=== PATIENT | female | born 1985 | race Caucasian/White ===

== ENCOUNTER → 2020-01-30 14:54 | Outpatient (BNVA) | payer OTHER, SELFPAY | PROVIDERS: Visit Provider Obstetrics & Gynecology | DX: Z97.5 Presence of (intrauterine) contraceptive device (principal); Z32.00 Encounter for pregnancy test, result unknown | CPT/HCPCS: 81025 ==

== ENCOUNTER → 2020-02-17 09:18 | Outpatient (BNVA) | payer OTHER, SELFPAY | PROVIDERS: Visit Provider Obstetrics & Gynecology | DX: N90.4 Leukoplakia of vulva (principal) | CPT/HCPCS: 88305 ==

== ENCOUNTER → 2020-02-24 12:42 | Outpatient (BNVA) | payer OTHER, SELFPAY | PROVIDERS: Visit Provider Obstetrics & Gynecology | DX: Z11.59 Encounter for screening for other viral diseases (principal); D07.1 Carcinoma in situ of vulva | CPT/HCPCS: 87635 ==

== ENCOUNTER 2020-02-26 08:34 | Day surgery (SDC) | payer OTHER, SELFPAY ==
[2020-02-25 12:50] VITALS: BMI 21.7
--- NOTE | 2020-02-25 13:21 | ANES.PREANE2 ---
Pre-Anesthetic Assessment Pre-Anesthetic Assessment: Height/Weight: Height 1.68 m Weight 61.235 kg Preop Diagnosis: Vulvar intraepithelial neoplasia 3 Proposed Procedure: Operation Date: 02/26/20 10:00 Proposed Procedures p Vulvar excisional biopsy 24750 D07.1(Not Applicable) - Tremaine Albrecht MD Familial anesthetic complications: None Social: Social History: Tobacco and No alcohol Exam: Pre-Anes Outpt Exam: alert, oriented x 3, clear to auscultation bilaterally and regular rate & rhythm Airway: Cervical ROM: WNL MP: 1 Dentition: Full Anesthetic Plan: ASA status: 1 Anesthesia: MAC Risk of > 500 ml blood loss (7ml/kg in children): No PFSH Anesthesia PFSH: Medical History (Updated 02/24/20 @ 11:29 by Tremaine Albrecht MD) Vulvar intraepithelial neoplasia (BIRD) grade 3 Family History Father Cancer Bone cancer Grandmother Diabetes Maternal grandmother Other Hyperlipidemia Denies family history of CAD (coronary artery disease) Clotting disorder Dementia Psychiatric illness Chronic kidney disease (CKD) Suicide Anesthesia complication Bleeding disorder Family history of premature coronary artery disease Lung disease Hypertension Stroke Social History Smoking and tobacco status: current every day smoker cigarettes Packs smoked per day: 0.5 Alcohol intake: never Other details last substance use: Denies drug use Female Reproductive History: Date of last menstrual period: 01/27/20 Data Anesthesia Cardiac Studies: No Data to Display
[2020-02-25 13:25] LABS: OR HCG Qualitative Urine Negative (Negative)
[2020-02-25 13:36] LABS: Add Urine Microscopic? NO
[2020-02-25 13:41] LABS: Basophils % 0.4 %; Eosinophils # 0.1 10^3/uL (0.0-0.8); Eosinophils % 1.2 %; Hematocrit 37.9 % (37.0-47.0); Hemoglobin 11.8 g/dL (11.5-15.3); Lymphocytes % 37.2 %; Mean Corpuscular HGB Conc 31.1 g/dL (30.0-36.0); Mean Corpuscular Hemoglobin 26.2 pg (28.0-34.0); Mean Corpuscular Volume 84.2 fL (81-99); Mean Platelet Volume 10.5 fL (7.4-10.4); Monocytes # 0.7 10^3/uL (0.2-0.9); Monocytes % 8.4 %; Neutrophils # 4.26 10^3/uL (1.8-7.7); Neutrophils % 52.6 %; Nucleated Red Blood Cells % 0 %; Platelet Count 280 10^3/cmm (130-400); Red Cell Distribution Width 14.9 % (12.1-15.1); White Blood Count 8.1 10^3/uL (4.0-10.0)
[2020-02-25 14:07] LABS: Bilirubin Urine Neg (Negative); Blood Urine Neg (Negative); Glucose Urine UA Norm (Normal); Ketones Urine Negative (Negative); Leukocyte Esterase Urine Negative (Negative); Nitrate Urine Negative (Negative); Protein Urine Neg (Negative); Urine Appearance Clear (CLEAR); Urine Color Straw (Yellow); Urobilinogen Urine Norm (Negative); pH Urine 5 (5-7)
[2020-02-25 14:09] LABS: Blood Urea Nitrogen 10 mg/dL (6-20); Carbon Dioxide 23 mmol/L (22-29); Chloride 103 mmol/L (98-107); Glomerular Filtration Rate 81.6 mL/min (90-130); Glucose 94 mg/dL (65-115); Osmolality Calculated 283 mOsm/kg (285-295); Sodium 137 mmol/L (136-145)
[2020-02-26] MEDS: sodium chloride 0.9% 500 ML IV (09:15)
[2020-02-26] MEDS: scopolamine 1.5 Patch 1 PATCH TRANSDERMA (09:17)
[2020-02-26 09:22] VITALS: BP 132/76; PULSE 81; RESP 18; TEMP 36.5; O2SAT 100
[2020-02-26] MEDS: sodium chloride 0.9% 1,000 ML 30 ML IV (09:41)
--- NOTE | 2020-02-26 10:58 | W.PM.OPSUD ---
Surgery/Procedure H&P Update DATE OF PROCEDURE: February 26, 2020 DATE H&P PERFORMED: 02/24/20 H&P UPDATE INFORMATION: I have reviewed H&P completed within last 30 days, I have examined patient prior to procedure and No changes to prior documentation PREOP DIAGNOSIS: Vulvar intraepithelial neoplasia 3 PLANNED PROCEDURE: Operation Date: 02/26/20 10:00 Proposed Procedures p Vulvar excisional biopsy 01720 D07.1(Not Applicable) - Tremaine Albrecht MD
--- NOTE | 2020-02-26 13:24 | P.OP_ITS ---
Operative Report Date of procedure: February 26, 2020 Pre-op Diagnosis: Vulvar intraepithelial neoplasia 3 Post-op diagnosis: same Post-op Findings: perineal leukoplakia lesion Procedure Done: vulvar perineal wide local excision Specimens removed/disposition: perineal excision biopsy manuel with suture at the perirectal aend Surgeon: Tremaine Albrecht M.D. 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 Initial biopsy diagnosed with vulvar intraepithelial neoplasia 3. Procedure: After informed consent, the risks and benefits of the procedure were explained to the patient. The patient was brought into the operating room. After anesthesia was given, the patient was prepped and draped in normal sterile fashion. A timeout procedure was carried out. A radial incision was made in the perineum with a #10 blade scalpel with 1 cm margin pass the perineal lesion. An Allis was used to grasp the tissue while using the #10 scalpel. The lesion was completely excised and sent out for specimen to pathology. Hemostasis was then obtained with electrobovie cautery. The defect was closed in layers fashion and skin was then closed with #3-0 Vicryl subcuticular fashion. The patient tolerated the procedure well and was transferred to Recovery in stable condition . The patient was instructed to avoid heavy lifting, tampons, douching, and sexual intercourse for 2 weeks after the procedure.
[2020-02-26 13:40] VITALS: BP 107/61; PULSE 68; RESP 18; TEMP 36.3; O2SAT 100
[2020-02-26 14:07] VITALS: BP 105/71; PULSE 94; RESP 18; O2SAT 98
== END 2020-02-26 14:50 | disposition home or self-care (01) ==
PROVIDERS: Visit Provider Obstetrics & Gynecology
PROC: (CPT 56605; principal; 2020-02-26 09:50)
DX: D07.1 Carcinoma in situ of vulva (principal); F17.210 Nicotine dependence, cigarettes, uncomplicated
CPT/HCPCS: 56605; 12345; 36415; 80048; 81003; 81025; 84703; 85025; 86850; 86900; 88305; 96365; J0690; J1885; J2250; J2405; J2704; J3010; J7030; J7040

== ENCOUNTER → 2021-04-12 10:00 | Outpatient (BNVA) | payer OTHER, SELFPAY | PROVIDERS: Visit Provider Obstetrics & Gynecology | DX: Z12.4 Encounter for screening for malignant neoplasm of cervix (principal) | CPT/HCPCS: 87624 ==

== ENCOUNTER → 2022-06-28 14:20 | Outpatient (BNVA) | payer SELFPAY | PROVIDERS: Visit Provider Obstetrics & Gynecology | DX: Z12.4 Encounter for screening for malignant neoplasm of cervix (principal) | CPT/HCPCS: 87624 ==

== ENCOUNTER → 2023-02-02 13:26 | Outpatient (BNVA) | payer OTHER, SELFPAY | PROVIDERS: Visit Provider Obstetrics & Gynecology | DX: Z30.431 Encounter for routine checking of intrauterine contraceptive device (principal); Z30.9 Encounter for contraceptive management, unspecified; Z30.46 Encounter for surveillance of implantable subdermal contraceptive | CPT/HCPCS: 81025 ==

== ENCOUNTER 2023-11-28 08:18 | Day surgery (SDC) | payer OTHER, SELFPAY ==
--- NOTE | 2023-11-23 11:21 | ANES.PREANE2 ---
Pre-Anesthetic Assessment Height/Weight: Height 1.68 m Preop Diagnosis: desire permanent sterilization Operation Date: 11/28/23 10:00 Proposed Procedures p Laparoscopic Salpingectomy 03929, Z30.2(Bilateral) - Tremaine Albrecht MD Familial anesthetic complications: None Was Beta Kirk taken within 24 hours: N/A Was Clonidine taken within 24 hours: N/A Social Tobacco and No alcohol Exam alert, oriented x 3, clear to auscultation bilaterally and regular rate & rhythm Airway Mallampati: Class I Dentition: full Anesthetic Plan ASA status: 1 Anesthesia: General Risk of > 500 ml blood loss (7ml/kg in children): No Medications/Allergies Home Medications Medication Instructions Recorded Confirmed Last Taken Type ibuprofen 800 mg tablet 800 mg PO TID AUB #60 tabs 08/14/23 11/23/23 Unknown Rx estradiol 0.5 mg tablet 0.5 mg PO DIRECTED 11/23/23 11/23/23 11/23/23 History Allergies Allergy/AdvReac Type Severity Reaction Status Date / Time No Known Allergies Allergy Verified 11/23/23 09:49 [facility] Anesthesia Medical History Aftercare following surgery of the genitourinary system Vulvar intraepithelial neoplasia (BIRD) grade 3 Family History Father Cancer Bone cancer Grandmother Diabetes Maternal grandmother Other Hyperlipidemia Denies family history of CAD (coronary artery disease) Clotting disorder Dementia Psychiatric illness Chronic kidney disease (CKD) Suicide Anesthesia complication Bleeding disorder Family history of premature coronary artery disease Lung disease Hypertension Stroke Social History Smoking and tobacco/nicotine status: never used tobacco/nicotine Alcohol intake: current Alcohol intake frequency: holidays/special occasions only Alcohol type: beer Substance/Drug Use: never Female Reproductive History Date of last menstrual period: 11/08/23 Data Anesthesia Cardiac Studies: No Data to Display
[2023-11-23 11:22] LABS: Charge for UA Resulting for Rev
[2023-11-23 11:27] LABS: Basophils % 0.4 %; Eosinophils # 0.1 10^3/uL (0.0-0.8); Eosinophils % 1.1 %; Hematocrit 42.7 % (36-47); Lymphocytes # 2.3 10^3/uL (0.8-4.8); Mean Corpuscular HGB Conc 32.6 g/dL (30-55); Mean Corpuscular Hemoglobin 29.8 pg (27-33); Mean Corpuscular Volume 91.6 fl (85-98); Mean Platelet Volume 10.1 fL (7.4-10.4); Monocytes # 0.6 10^3/uL (0.2-0.9); Monocytes % 8.5 %; Neutrophils # 4.27 10^3/uL (1.8-7.7); Neutrophils % 58.7 %; Nucleated Red Blood Cells % 0 %; Platelet Count 250 10^3/cmm (157-399); Red Blood Count 4.66 10^6/uL (3.85-5.65); Red Cell Distribution Width 12.9 % (12.1-15.1); White Blood Count 7.28 10^3/uL (3.29-11.43)
[2023-11-23 11:28] LABS: Bilirubin Urine Negative (Negative); Blood Urine 3+ (Negative); Glucose Urine UA Negative (Normal); Ketones Urine Negative (Negative); Leukocyte Esterase Urine Negative (Negative); Nitrate Urine Negative (Negative); Protein Urine Negative (Negative); Specific Gravity, Urine 1.005 (1.005-1.030); Urine Appearance Clear (CLEAR); Urine Color Yellow (Yellow)
[2023-11-23 11:31] LABS: Bacteria Urine None Seen /hpf; RBC Urine 51-100 /hpf (0-2); Squamous Epithelial Cell Urine 0-5 /hpf (0-5); WBC Urine 0-5 /hpf (0-5)
[2023-11-23 11:34] LABS: Add Urine Culture? Yes
[2023-11-23 11:52] LABS: Alanine Aminotransferase 11 U/L (0-33); Albumin Level 4.4 g/dL (3.5-5.2); Alkaline Phosphatase 48 U/L (35-105); Anion Gap 15.9 (5-19); Aspartate Amino Transferase 16 U/L (0-32); Blood Urea Nitrogen 9 mg/dL (6-20); Calcium 8.7 mg/dL (8.5-10.5); Carbon Dioxide 22 mmol/L (22-29); Chloride 107 mmol/L (98-107); Globulin 2.3 g/dL (1.3-4.6); Glomerular Filtration Rate 79.9 mL/min (90-130); Glucose 86 mg/dL (65-115); Osmolality Calculated 288 mOsm/kg (285-295); Potassium 4.9 mmol/L (3.5-5.1); Sodium 140 mmol/L (136-145); Total Bilirubin 0.3 mg/dL (0.15-1.2); Total Protein 6.7 g/dL (6.6-8.7)
[2023-11-28] VITALS (9 sets, daily range): BP systolic 114–132; BP diastolic 70–83; PULSE 69–87; RESP 13–28; TEMP 36.1–36.3; O2SAT 94–100; BMI 20.2
[2023-11-28 08:39] LABS: OR HCG Qualitative Urine Negative (Negative)
[2023-11-28] MEDS: scopolamine 1.5 Patch 1 PATCH TRANSDERMA (09:04)
[2023-11-28] MEDS: sodium chloride 0.9% 1,000 ML 30 ML IV (09:04)
[2023-11-28] MEDS: sodium chloride 0.9% 500 ML IV (09:04)
[2023-11-28] MEDS: ceFAZolin 2,000 mg SDV 2000 MG IVP (09:18)
--- NOTE | 2023-11-28 09:36 | P.ANESUD_ITS ---
Pre-Anesthetic Update Pre-Anesthetic Assessment: Date of Surgery/Procedure: 11/28/23 Preop Claudia gnosis: desire permanent sterilization Proposed Procedure: Operation Date: 11/28/23 10:00 Proposed Procedures p Laparoscopic Salpingectomy 59390, Z30.2(Bilateral) - Tremaine Albrecht MD Any changes to Pre-Anesthetic Assessment?: No Last Intake: Intake Last Liquid Date 11/27/23 Last Liquid Time 23:00 Last Solid Date 11/27/23 Last Solid Time 23:00 Vitals: Temperature 97.1 F L 11/28/23 08:42 Temperature Source Temporal Artery S can 11/28/23 08:42 Pulse Rate 70 11/28/23 08:42 Pulse Rhythm Regular 11/28/23 08:43 Pulse Strength 3+ Normal 11/28/23 08:43 Respiratory Rate 17 11/28/23 08:42 Blood Pressure 127/80 11/28/23 08:42 Blood Pressure Ivory n 95 11/28/23 08:42 Pulse Oximetry 100 11/28/23 08:42 Oxygen Delivery Me thod Room Air 11/28/23 08:43 Exam: Pre-Anes Outpt Exam: alert, oriented x 3, clear to auscultation bilaterally and regular rate & rhythm Cardiac Studies: No Data to Display
--- NOTE | 2023-11-28 10:20 | W.PM.OPSUD ---
Surgery/Procedure H&P Update DATE OF PROCEDURE: November 28, 2023 DATE H&P PERFORMED: 11/23/23 H&P UPDATE INFORMATION: I have reviewed H&P completed within last 30 days, I have examined patient prior to procedure and No changes to prior documentation PREOP DIAGNOSIS: desire permanent sterilization PLANNED PROCEDURE: Operation Date: 11/28/23 10:00 Proposed Procedures p Laparoscopic Salpingectomy 46077, Z30.2(Bilateral) - Tremaine Albrecht MD
[2023-11-28] MEDS: BUPivacaine 0.5% INJ 10 mL INJECTION (11:30)
--- NOTE | 2023-11-28 11:46 | PM.OP ---
Operative Report Date of procedure: November 28, 2023 Pre-op diagnosis: Desire permanent sterilization Post-op diagnosis: same Procedure done: Laparoscopic bilateral salpingectomy Lysis of adhesion Specimens removed/disposition: Left and right fallopian tubes Surgeon: Tremaine Albrecht MD Estimated blood loss (mL): 5 IV fluids (mL): 1,800 Urine output (mL): 150 Complications: None Findings: Normal size uterus, ovaries and fallopian tube Adhesions to the right lower abdominal wall Procedure: After informed consent, the patient was taken to the operating room where general anesthesia was administered. She was placed in the dorsal lithotomy position and prepped and draped in sterile fashion. Pre-Procedure Time-Out verifying the correct patient identity, correct procedure verified with consent, correct site and side, correct patient position, availability of correct implants and any special equipment or requirements was performed and acknowledge by the OR team. The patient was examined under anesthesia and found to have a normal uterus with normal adnexa. A weighted speculum was placed in the vagina, and the anterior lip of cervix was grasped with the single toothed tenaculum. A uterine manipulator was advanced into the endocervical canal and uterus. The tenaculum was removed after uterine manipulator was secured. The speculum was removed from the vagina. An intraumbilical incision was made with a scalpel. While tenting up on the abdomen, a Verres needle was admitted into the intra-abdominal cavity. A saline drop test was performed and noted to be within normal limits. Pneumoperitoneum was attained with 4 liters of carbon dioxide. The Verres needle was removed. A 5 mm Opitc view trocar and sleeve were admitted into the abdomen and laparoscopic confirmation of location was achieved. A second incision was made 3 cm above the symphysis pubis, and a 5 mm trocar sleeves were admitted into the abdomen under direct laparoscopic visualization without complication. A survey revealed normal abdominal anatomy with the exception of string adhesion to the right lower anterior abdominal wall. A 5 mm blunt probe was advanced through the second trocar sleeve, and light manipulation of ovaries and uterus to assess the posterior aspects was performed. The pelvic survey shows normal uterus, left and right adnexa. The left ovary was noted normal.. The adhesion to the right lower anterior abdominal wall was fulgurated and transected with good hemostasis with the Ligasure. The patient was placed into Trendelenburg position. The fallopian tubes were inspected bilaterally and the fimbriated ends of the fallopian tubes were visualized bilaterally. Attention was then directed to the right side. The fallopian tube and mesosalpinx were grasped and the underlying mesosalpinx was cauterized and cut using the Ligasure device. Serial cauterization and cutting was used to separate the fallopian tube from the underlying mesosalpinx until it could be amputated cutting it approximated 2 cm from the cornua. Attention was then turned to the contralateral fallopian tube, which was removed in similar fashion. Both specimens were removed through the trocar and sent to pathology. The instruments were removed. The suprapubic trocar port was removed under direct visualization insuring good hemostasis. The carbon dioxide was allowed to escape from the abdomen. The intraumbilical trocar sleeve was withdrawn under visualization with laparoscope in the sleeve to insure hemostasis. The skin incisions were closed with 3-O Monocryl subcuticular stich and Dermabond. The instruments were removed from the vagina, and excellent hemostasis was noted. The patient tolerated the procedure well, and sponge, lap and needle count were correct times two. The patient was taken to the recovery room in good condition.
--- NOTE | 2023-11-28 12:58 | ANE.PACU2 ---
Inpatient post-anesthesia follow up: Airway intact: Yes Vital signs: Temperature 97.4 F Pulse Rate 70 Respiratory Rate 19 Blood Pressure 114/70 Pulse Oximetry 98 Oxygen Delivery Me thod Room Air Oxygen Flow Rate Fraction of Inspir ed Oxygen Hydration adequate: Yes Nausea and vomiting: No Pain level: 2 Mental status: Baseline
== END 2023-11-28 13:05 | disposition home or self-care (01) ==
PROVIDERS: PCP Obstetrics & Gynecology; Visit Provider Obstetrics & Gynecology
PROC: (CPT 58661; principal; 2023-11-28 09:50)
DX: Z30.2 Encounter for sterilization (principal); K66.0 Peritoneal adhesions (postprocedural) (postinfection)
CPT/HCPCS: 58661; 36415; 80053; 81003; 81015; 81025; 85025; 86850; 86900; 87086; 88302; J0690; J1100; J1170; J1885; J2250; J2405; J2704; J3010; J3490; J7030; J7040